=== PATIENT | female | born 1995 | race Caucasian/White ===

== ENCOUNTER 2022-10-16 13:05 | Outpatient (OUT) | payer OTHER, SELFPAY ==
--- NOTE | 2022-10-16 13:27 | US_ITS ---
[address] [address] Patient Name: BESSIE AN MRN: [id number] date: 1995 Sex: F Assigned Patient Location: US Current Patient Location: US Accession/Order Number: [id number] Exam Date: 10/16/2022 13:30 Report Date: 10/16/2022 15:57 At the request of: LIAT PRADO Procedure: US OB growth EXAMINATION: US OB growth HISTORY: Size inconsistent with dates COMPARISON: Ultrasound anatomy 07/24/2022 FINDINGS: Heart Rate: 141.1 bpm Number: 1.0 Position: BREECH Amniotic Fluid Volume: 15.5 cm Maximum Vertical Pocket: 5.3 cm Complete BIOMETRY: BPD: 7.6 cm cm; 30 weeks 4 days; <3% HC: 29.1 cmcm; 32 weeks 1 days; 6% AC: 27.3 cm cm; 31 weeks 3 days; 50% FL: 5.8 cm cm; 30 weeks 4 days; <3% EFW: 1701.0 grams; 7% FL/AC: 21.4 FL/BPD: 76.6 HC/AC: 1.1 GESTATIONAL AGE: Age by EDC: 32 weeks 5 days SETELA by EDC: 12/06/2022 Age by US: 31 weeks 1 day ESTELA by US: 12/17/2022 IMPRESSION: 1. Single live intrauterine with growth detailed above. 2. Estimated weight is at 7th percentile. BPD and FL are less than 3rd percentile. Electronically authenticated by: DUC BANGURA Date: 10/16/2022 15:57
== END 2022-10-16 13:06 ==
LOC: US 13:08
PROVIDERS: Visit Provider Obstetrics & Gynecology
DX: O26.843 Uterine size-date discrepancy, third trimester (principal); Z3A.32 32 weeks gestation of pregnancy
CPT/HCPCS: 76816

== ENCOUNTER 2022-11-09 20:06 | Outpatient (REF) | payer OTHER, SELFPAY | END 2022-11-09 20:07 | disposition home or self-care (01) | LOC: LAB 20:06 | PROVIDERS: Visit Provider Physician Assistant | DX: Z34.93 Encounter for supervision of normal pregnancy, unspecified, third trimester (principal) | CPT/HCPCS: 87081 ==

== ENCOUNTER 2022-11-27 17:27 | Observation (INO) | payer OTHER, SELFPAY ==
[2022-11-27 17:45] VITALS: BP 121/83; PULSE 94
[2022-11-27 17:46] VITALS: TEMP 36.4
[2022-11-27 18:46] LABS: Bilirubin Urine NEGATIVE (NEGATIVE); Blood Urine TRACE-I (NEGATIVE); Clarity Urine CLEAR (CLEAR); Color Urine LT. YELLOW (YELLOW); Glucose Urine UA NEGATIVE (NEGATIVE); Ketones Urine NEGATIVE (NEGATIVE); Leukocyte Esterase Urine LARGE (NEGATIVE); Nitrite Urine NEGATIVE (NEGATIVE); Protein Urine NEGATIVE (NEG/TRACE); Urobilinogen Urine 0.2 EU/dL (0.2-1.0)
[2022-11-27 18:47] LABS: Urine Microscopic Indicated YES
[2022-11-27 18:57] LABS: Bacteria Urine LARGE #/HPF (NONE SEEN); Cast Seen? NONE SEEN #/LPF (NONE SEEN); Crystals Seen? None Seen #/HPF (None Seen); Mucus Urine NONE SEEN (NONE SEEN); RBC Urine 0-2 #/HPF (0-2); Squamous Epithelial Cell Urine MANY #/LPF (NONE/RARE); Urine Culture Indicated YES
--- NOTE | 2022-11-27 19:30 | W.PC.ACHO ---
Registration Status: ADM LUCITA Primary Language: Preferred Language: Report given to Hank Alexandra RN. Care relinguished.
== END 2022-11-27 20:40 | disposition home or self-care (01) ==
PROVIDERS: Admitting Provider Obstetrics & Gynecology; Visit Provider Obstetrics & Gynecology
DX: O26.893 Other specified pregnancy related conditions, third trimester (principal); M54.50 Low back pain, unspecified; R10.30 Lower abdominal pain, unspecified; Z3A.38 38 weeks gestation of pregnancy
CPT/HCPCS: 59025; 81003; 81015; 87086; G0378; G0379

== ENCOUNTER 2022-12-01 21:55 | Inpatient (IN) | payer OTHER, SELFPAY ==
[2022-12-01 22:17] VITALS: BP 128/84; PULSE 86; RESP 16; TEMP 36.2
[2022-12-01 22:30] VITALS: TEMP 36.2
[2022-12-01] MEDS: 0.9 % SODIUM CHLORIDE 1,000 ML 125 ML IV (23:19)
[2022-12-01 23:20] LABS: Hematocrit 38.6 % (36.0-48.0); Hemoglobin 13.3 g/dL (12.0-16.0); Mean Corpuscular HGB Conc 34.5 g/dL (29.9-35.2); Mean Corpuscular Hemoglobin 28.4 pg (26.7-34.0); Mean Corpuscular Volume 82.3 fL (81.0-99.0); Mean Platelet Volume 11.9 fL (9.5-13.5); Platelet Count 242 10^3/uL (150-450); Red Blood Count 4.69 10^6/uL (4.20-5.40); Red Cell Distribution Width 13.2 % (11.0-15.0); White Blood Count 11.7 10^3/uL (4.0-11.0)
[2022-12-01 23:21] LABS: Amphetamine Screen Urine NEGATIVE (NEGATIVE); Barbiturates Screen Urine NEGATIVE (NEGATIVE); Benzodiazepines Screen Urine NEGATIVE (NEGATIVE); Buprenorphine Screen Urine NEGATIVE (NEGATIVE); Cannabinoid Screen Urine NEGATIVE (NEGATIVE); Cocaine Screen Urine NEGATIVE (NEGATIVE); Methadone Screen Urine NEGATIVE (NEGATIVE); Methamphetamines Screen Urine NEGATIVE (NEGATIVE); Opiate Screen Urine NEGATIVE (NEGATIVE); Oxycodone Screen Urine NEGATIVE (NEGATIVE); Phencyclidine Screen Urine NEGATIVE (NEGATIVE); Tricyclic Antidepressant Urine NEGATIVE (NEGATIVE)
[2022-12-02] VITALS (76 sets, daily range): BP systolic 76–158; BP diastolic 44–106; PULSE 50–99; RESP 14–22; TEMP 35.8–36.6; O2SAT 96–100
[2022-12-02] MEDS: OXYTOCIN 10 UNIT in 0.9 % SODIUM CHLORIDE 500 ML 6.012 UNIT IV (00:03)
[2022-12-02] MEDS: 0.9 % SODIUM CHLORIDE 1,000 ML 1000 ML IV ×2 (03:58→05:26)
[2022-12-02] MEDS: ROPIVACAINE HCL/PF 400 MG/200 ML PREMIX 10 MG EPIDURAL (04:18)
--- NOTE | 2022-12-02 07:24 | W.PC.ACHO ---
Registration Status: ADM IN Primary Language: Sri Lankan Preferred Language: Sri Lankan Report given to Janis PACHECO. Active Medications Generic Name Dose Route Start Last Admin Trade Name Freq PRN Reason Stop Dose Admin Carboprost Tromethamine 250 mcg 12/01/22 21:58 Carboprost Tromethamine 250 Mcg/Ml 1 Ml Vial IM Q15M PRN Bleeding Diphenhydramine HCl 25 mg 12/02/22 00:29 Diphenhydramine Hcl 50 Mg/Ml (1ml) Vial IV Q6H PRN Itching Ephedrine Sulfate 5 mg 12/02/22 00:29 Ephedrine Sulfate 50 Mg/Ml Vial IV Q5M PRN Blood Pressure - Low Fentanyl Citrate 100 mcg 12/02/22 03:00 Fentanyl Citrate/Pf 100 Mcg/2 Ml Vial EPIDURAL Q4H PRN Pain Sodium Chloride 1,000 mls @ 125 mls/hr 12/01/22 22:00 12/01/22 23:19 Sodium Chloride 0.9% 1,000 Ml IV 125 mls/hr .Q8H LIZBETH Administration Oxytocin 10 unit/ Sodium 501 mls @ 6.012 mls/hr 12/01/22 22:00 12/02/22 00:03 Chloride IV 2 milliunit/min Q24H LIZBETH 6.012 mls/hr Administration 2 MILLIUNIT/MIN Ropivacaine/Sodium Chloride 400 mg in 200 mls @ 6 mls/hr 12/02/22 03:00 12/02/22 04:18 Naropin 0.2% 400 Mg/200 Ml Bag EPIDURAL 10 mls/hr Q24H LIZBETH 10 mls/hr Administration Lidocaine 5 ml 12/01/22 21:58 Lidocaine Viscous 2% 15 Ml Topical Solution TOPICAL DIRECTED PRN Pain Lidocaine 1 ml 12/01/22 21:58 Lidocaine Hcl 1% 200 Mg/20 Ml Mdv INJ DIRECTED PRN Pain Methylergonovine Maleate 0.2 mg 12/01/22 21:58 Methylergonovine Maleate 0.2 Mg Tablet PO Q4H PRN Uterine Contractility/Contract Methylergonovine Maleate 0.2 mg 12/01/22 21:58 Methylergonovine Maleate 0.2 Mg/Ml Ampule IM ONCE PRN Uterine Contractility/Contract Misoprostol 600 mcg 12/01/22 21:58 Misoprostol 100 Mcg Tablet PO ONCE PRN Uterine Bleeding Misoprostol 800 mcg 12/01/22 21:58 Misoprostol 100 Mcg Tablet SL ONCE PRN Uterine Bleeding Misoprostol 1,000 mcg 12/01/22 21:58 Misoprostol 100 Mcg Tablet [place] ONCE PRN Uterine Bleeding Ondansetron HCl 4 mg 12/01/22 21:58 Ondansetron Pf 4 Mg/2 Ml Vial IV Q6H PRN Nausea And Vomiting Ondansetron HCl 4 mg 12/01/22 21:58 Ondansetron 4 Mg Rapdis Tablet SL Q6H PRN Nausea And Vomiting Oxytocin 10 unit 12/01/22 21:58 Oxytocin 100 Unit/10 Ml Vial IM ONCE PRN Uterine Bleeding Diet Category Date Time Status Regular Consistency Diet Diet 12/02/22 Breakfast Active IV Insertion/Site Date of IV Line Insertion [20g 12/01/22 right Hand] IV Insertion Time [20g right 23:10 Hand] Neurology Patient orientation (short person,place,time,situation list)
[2022-12-02] MEDS: 0.9 % SODIUM CHLORIDE 1,000 ML 125 ML IV (09:25)
[2022-12-02] MEDS: ONDANSETRON PF 4 MG/2 ML VIAL IV (10:39)
[2022-12-02] MEDS: CEFAZOLIN SODIUM/DEXTROSE,ISO 2 GM/50 ML PIGGYBACK IV ×2 (11:07→17:17)
--- NOTE | 2022-12-02 12:18 | PM.ONB ---
Brief Operative Note Date of procedure: 12/02/22 Pre-op diagnosis: iup at 39 2/7wks, nonreassuring heart tones Post-op diagnosis: same Procedure: NAME OF PROCEDURE: [ section ] PROCEDURE: Patient was taken back to the Operating Room where she was given a spinal anesthesia with Duramorph without difficulty. She was prepped and draped in the normal sterile fashion. A Pfannenstiel skin incision was then made 2 cm above the symphysis pubis and carried down to underlying rectus fascia using a Bovie. The fascia was incised in the midline and extended laterally using Wellington scissors. Two Vanessa clamps were placed on the superior aspect of the fascia and dissected off the underlying rectus muscles. The same was performed on the inferior aspect as well. The muscles were then in the midline. Peritoneum was identified and entered bluntly. The peritoneum was then extended superiorly and inferiorly with good visualization of the bladder. The bladder blade was inserted. A low transverse incision was made on the patient's uterus and extended laterally digitally. The infant was then delivered atraumatically after the bladder blade was removed in the cephalic position. The cord was clamped and cut. Cord blood was obtained. The infant was handed off to awaiting team. The patient's placenta was spontaneously delivered. The uterus was then exteriorized. The uterus was cleared of all clots and debris. The bladder blade was reinserted. The patient's uterine incision was closed using #0 Vicryl in a running lock fashion. Excellent hemostasis was assured. The uterus was then returned to the patient's abdomen. The patient's abdomen was copiously irrigated using warm saline. Peritoneal gutters were cleared of all clots and debris. Again excellent hemostasis was assured. The patient's peritoneum was closed using 3-0 Vicryl in a running fashion. The patient's fascia was closed using #0 Vicryl in a running fashion. The patient's skin was closed using 4-0 Vicryl subcuticularly. The patient tolerated the procedure well. Sponge, lap, and needle counts were correct x2. The patient was taken to the Recovery Room in stable condition. Anesthesia: spinal Surgeon: Isaias Gaines Photoengraving Machine Operator/Tender: BRITTANY BELTRÁN Estimated blood loss (mL): 700 Pathology: other (placenta) Condition: stable Disposition: PACU
--- NOTE | 2022-12-02 12:19 | PM.OBPRCCS ---
Procedure Pre-op/Post-op diagnoses: Pre-Op/Post-Op Diagnoses Operation Date: 12/02/22 11:30 <No data on this case meets the specified criteria> Procedure: Procedures Operation Date: 12/02/22 11:30 Actual Procedure Side Surgeon p Not Applicable Isaias Gaines DO Investment Manager: BRITTANY BELTRÁN Estimated blood loss (mL): 700 Disposition: PACU Anesthesia type: Epidural
[2022-12-02] MEDS: LACTATED RINGER'S SOLUTION 1,000 ML 50 ML IV (12:25)
--- NOTE | 2022-12-02 12:33 | PM.OBPN ---
OB - PN: Subj Subjective Narrative: front office assistant note: I first assisted Dr Gaines with emergent primary section. I first assisted as directed by physician. I independently closed the SQ layer with 3-0 vicryl and then independently closed the skin incision with 4-0 vicryl on a racquel needle hemostasis noted at completion. patient tolerated procedure well. Exam Constitutional Vital Signs, click to edit/add: Last Vital Signs Temp 97.8 F 12/02/22 12:25 Pulse 99 H 12/02/22 12:25 Resp 22 12/02/22 12:25 BP 93/56 L 12/02/22 12:25 Pulse Ox 100 12/02/22 12:25 O2 Del Method Nasal Cannula 12/02/22 12:25 O2 Flow Rate 2 12/02/22 12:25 Results Labs Labs: Short CBC 12/01/22 Range/Units 23:14 WBC 11.7 H (4.0-11.0) 10^3/uL Hgb 13.3 (12.0-16.0) g/dL Hct 38.6 (36.0-48.0) % Plt Count 242 (150-450) 10^3/uL OB - PN: A/P Time Spent with Patient Time: Total time spent is greater than 50% in coordination of care (as documented) at patient's floor/unit and/or counseling patient: Total time spent with greater than 50% in coordination of care (as documented) at patient's floor/unit and/or counseling patient: less than 15 minutes
--- NOTE | 2022-12-02 13:01 | PC.NURSE ---
ANESTHESIA AWARE OF PATIENTS LOW BLOOD PRESSURE. STATED IT WAS RUNNING SIMILAR IN OPERATING ROOM AND HE DID NOT TREAT IT (GIANNA HACKETT). ANESTHESIA FINE WITH BLOOD PRESSURE. NO ABNORMAL UTERINE BLEEDING NOTICED.
--- NOTE | 2022-12-02 13:07 | PC.NURSE ---
1139 cord segment sent to lab
[2022-12-02 14:15] LABS: Basophils Absolute Auto 0.1 10^3/uL (0.0-0.1); Basophils Percent Auto 0.3 % (0.2-2.0); Eosinophils Absolute Auto 0.1 10^3/uL (0.0-0.7); Eosinophils Percent Auto 0.3 % (0.9-7.0); Hematocrit 36.1 % (36.0-48.0); Immature Granulocytes Abs Auto 0.11 10^3/uL (0.00-0.03); Immature Granulocytes Pct Auto 0.6 % (0.0-0.5); Lymphocytes Absolute Auto 0.9 10^3/uL (1.2-3.8); Lymphocytes Percent Auto 5.3 % (20.5-60.0); Mean Corpuscular HGB Conc 33.2 g/dL (29.9-35.2); Mean Corpuscular Hemoglobin 28.2 pg (26.7-34.0); Mean Corpuscular Volume 84.7 fL (81.0-99.0); Mean Platelet Volume 11.8 fL (9.5-13.5); Monocytes Absolute Auto 0.8 10^3/uL (0.3-0.8); Monocytes Percent Auto 4.7 % (1.7-12.0); Neutrophils Absolute Auto 15.5 10^3/uL (1.4-6.5); Neutrophils Percent Auto 88.8 % (43.0-75.0); Platelet Count 209 10^3/uL (150-450); Red Blood Count 4.26 10^6/uL (4.20-5.40); Red Cell Distribution Width 13.3 % (11.0-15.0); White Blood Count 17.5 10^3/uL (4.0-11.0)
--- NOTE | 2022-12-02 15:10 | PC.NURSE ---
1505 meal ordered. abdominal pain 08/21. denies nausea. holds baby.
[2022-12-02] MEDS: KETOROLAC TROMETHAMINE 30 MG/ML VIAL IVP ×2 (15:13→23:02)
--- NOTE | 2022-12-02 15:34 | PC.NURSE ---
uterus firm at 3/u,entire abdomen appears to paplapte firm. rodrigues cont to drain clear yellow urine approx 100mls, . Pt denies pain. scant rubra noted on chux. Vs as charted. Lungs clear. HR slightly irregular.
--- NOTE | 2022-12-02 15:46 | PC.NURSE ---
uterus cont to be 3/u and firm. entire abdomen palpates firm. Pt denies pain. VS as charted. Banks draining clear yellow urine. no Rubra noted on chux. Pt appears slightly pale, reports feeling cold . To supine position warm blanket given. takes sips of water and apple juice tolerates well. 1330-Assessment remains the same as above . Uterus firm at 3/u, entire abdomen palaptes firm. Pt denies pain. BP decreased. IV fluid bolus initated at 999ml/hr. Scant rubra noted on chux. 1335-Dr. Gaines called. Notified of above. Orders received for STAT CBC. Pt informed of plan of care. 1350-lab in for lab draw 1400-Dr. Gaines arrives on unit. to pts room with this RN. Dr. Gaines manually expresses large uterine clot and approx 2 -3 small walnut size clots with moderate bleeding. Uterus then firms at u/e, abdomen soft. pericare performed and chux changed. awaiting CBC results. 1420-orders lunch. denies pain. U/E. abdomen soft. cont to wait CBC results 1440-remains semi fan's in bed. No s/s of distress noted. family remains at bedside. NO rubra noted on chux. VS as charted. Dressing c,d, i. Cont to await CBC results. 1510-Lab called reguarding CBC results. Obtained. hgb 12.0. Dr. Gaines notified of results. no new orders received. 1515-Plan of care reviewed with pt and family. Verbalizes understanding. Report to [place] PACHECO. care relinquished.
--- NOTE | 2022-12-02 17:59 | PC.NURSE ---
1715 offered to put baby skin to skin. mom declines. scd's intact. ate meal without c/o nausea.
--- NOTE | 2022-12-02 19:34 | W.PC.ACHO ---
Registration Status: ADM IN Primary Language: Congolese Preferred Language: Congolese Report received from Olivier Tariq RN [id number]. Active Medications Generic Name Dose Route Start Last Admin Trade Name Freq PRN Reason Stop Dose Admin Al Hydroxide/Mg Hydroxide 2,400 mg 12/02/22 12:14 Magnesium Hydroxide 2,400 Mg/10 Ml Oral.Susp PO Q6H PRN Dyspepsia Carboprost Tromethamine 250 mcg 12/01/22 21:58 Carboprost Tromethamine 250 Mcg/Ml 1 Ml Vial IM Q15M PRN Bleeding Diphenhydramine HCl 25 mg 12/02/22 12:14 Diphenhydramine Hcl 50 Mg/Ml (1ml) Vial IV 12/03/22 12:16 Q6H PRN Itching Docusate Sodium 100 mg 12/03/22 09:00 Docusate Sodium 100 Mg Capsule PO BID LIZBETH Enoxaparin Sodium 40 mg 12/02/22 23:00 Enoxaparin Sodium 40 Mg/0.4 Ml Syringe SUBQ Q24H LIZBETH Ephedrine Sulfate 5 mg 12/02/22 00:29 Ephedrine Sulfate 50 Mg/Ml Vial IV Q5M PRN Blood Pressure - Low Fentanyl Citrate 100 mcg 12/02/22 03:00 Fentanyl Citrate/Pf 100 Mcg/2 Ml Vial EPIDURAL Q4H PRN Pain Oxytocin 10 unit/ Sodium 501 mls @ 6.012 mls/hr 12/01/22 22:00 12/02/22 07:30 Chloride IV 18 milliunit/min Q24H LIZBETH 54.108 mls/hr Infusion 2 MILLIUNIT/MIN Ropivacaine/Sodium Chloride 400 mg in 200 mls @ 6 mls/hr 12/02/22 03:00 12/02/22 04:18 Naropin 0.2% 400 Mg/200 Ml Bag EPIDURAL 10 mls/hr Q24H LIZBETH 10 mls/hr Administration Sodium Chloride 1,000 mls @ 125 mls/hr 12/02/22 11:15 Sodium Chloride 0.9% 1,000 Ml IV .Q8H LIZBETH Lactated Ringer's 1,000 mls @ 125 mls/hr 12/02/22 12:15 Lactated Ringers IV .Q8H LIZBETH Oxytocin 20 unit/ Sodium 1,002 mls @ 125 mls/hr 12/02/22 12:15 Chloride IV 12/02/22 20:14 Q8H LIZBETH Lactated Ringer's 1,000 mls @ 50 mls/hr 12/02/22 13:00 12/02/22 12:25 Lactated Ringers IV 50 mls/hr .Q20H LIZBETH Administration Ibuprofen 800 mg 12/02/22 12:14 Ibuprofen 400 Mg Tablet PO Q8H PRN Pain Ketorolac Tromethamine 30 mg 12/02/22 12:14 12/02/22 15:13 Ketorolac Tromethamine 30 Mg/Ml Vial IVP 12/04/22 12:15 30 mg Q6H PRN Administration Pain Lidocaine 5 ml 12/01/22 21:58 Lidocaine Viscous 2% 15 Ml Topical Solution TOPICAL DIRECTED PRN Pain Lidocaine 1 ml 12/01/22 21:58 Lidocaine Hcl 1% 200 Mg/20 Ml Mdv INJ DIRECTED PRN Pain Methylergonovine Maleate 0.2 mg 12/01/22 21:58 Methylergonovine Maleate 0.2 Mg Tablet PO Q4H PRN Uterine Contractility/Contract Methylergonovine Maleate 0.2 mg 12/01/22 21:58 Methylergonovine Maleate 0.2 Mg/Ml Ampule IM ONCE PRN Uterine Contractility/Contract Misoprostol 600 mcg 12/01/22 21:58 Misoprostol 100 Mcg Tablet PO ONCE PRN Uterine Bleeding Misoprostol 800 mcg 12/01/22 21:58 Misoprostol 100 Mcg Tablet SL ONCE PRN Uterine Bleeding Misoprostol 1,000 mcg 12/01/22 21:58 Misoprostol 100 Mcg Tablet [place] ONCE PRN Uterine Bleeding Nalbuphine HCl 10 mg 12/02/22 12:14 Nalbuphine Hcl 10 Mg/Ml Ampule IV 12/03/22 12:16 Q3H PRN Itching Ondansetron HCl 4 mg 12/01/22 21:58 Ondansetron 4 Mg Rapdis Tablet SL Q6H PRN Nausea And Vomiting Ondansetron HCl 4 mg 12/02/22 12:14 Ondansetron Pf 4 Mg/2 Ml Vial IV Q6H PRN Nausea And Vomiting Oxycodone/Acetaminophen 1 each 12/02/22 12:14 Oxycodone Hcl/Acetaminophen 5-325 Mg Tablet PO Q4H PRN Pain Oxycodone/Acetaminophen 2 each 12/02/22 12:14 Oxycodone Hcl/Acetaminophen 5-325 Mg Tablet PO Q4H PRN Pain Oxytocin 10 unit 12/01/22 21:58 Oxytocin 100 Unit/10 Ml Vial IM ONCE PRN Uterine Bleeding Senna 17.2 mg 12/02/22 20:00 Sennosides 8.6 Mg Tablet PO QHS PRN Constipation Simethicone 80 mg 12/02/22 12:14 Simethicone 80 Mg Tab.Chew PO QID PRN Abdominal Distention Diet Category Date Time Status Regular Consistency Diet Diet 12/02/22 Dinner Active IV Insertion/Site Date of IV Line Insertion [20g 12/01/22 right Hand] IV Insertion Time [20g right 23:10 Hand] Neurology Patient orientation (short person,place,time,situation list) Respiratory Lung sounds [Throughout] clear Pulse Oximetry 96 Pulse Oximetry 98 Pulse Oximetry 98 Pulse Oximetry 97 Pulse Oximetry 97 Pulse Oximetry 98 Pulse Oximetry 98 Pulse Oximetry 100 Pulse Oximetry 100 Pulse Oximetry 100 Pulse Oximetry 100 Oxygen Delivery Method Room Air Oxygen Delivery Method Nasal Cannula Oxygen Delivery Method Nasal Cannula Oxygen Delivery Method Nasal Cannula Oxygen Delivery Flow Rate 2 Oxygen Delivery Flow Rate 2 Oxygen Delivery Flow Rate 2 Oxygen Delivery Flow Rate 2 Oxygen Delivery Flow Rate 2 Oxygen Delivery Flow Rate 2 Oxygen Delivery Flow Rate 2 Oxygen Delivery Flow Rate 2 Oxygen Delivery Flow Rate 2 Cardiology Heart Sounds Regular
[2022-12-02] MEDS: ENOXAPARIN SODIUM 40 MG/0.4 ML SYRINGE SUBQ (23:03)
[2022-12-03] VITALS (8 sets, daily range): BP systolic 115–124; BP diastolic 66–74; PULSE 62–81; RESP 14–16; TEMP 36–36.7
[2022-12-03] MEDS: KETOROLAC TROMETHAMINE 30 MG/ML VIAL IVP ×4 (06:24→23:25)
[2022-12-03 06:36] LABS: Basophils Absolute Auto 0.1 10^3/uL (0.0-0.1); Basophils Percent Auto 0.5 % (0.2-2.0); Eosinophils Absolute Auto 0.2 10^3/uL (0.0-0.7); Eosinophils Percent Auto 1.5 % (0.9-7.0); Hematocrit 32.7 % (36.0-48.0); Immature Granulocytes Abs Auto 0.05 10^3/uL (0.00-0.03); Immature Granulocytes Pct Auto 0.5 % (0.0-0.5); Lymphocytes Absolute Auto 2.6 10^3/uL (1.2-3.8); Lymphocytes Percent Auto 23.2 % (20.5-60.0); Mean Corpuscular HGB Conc 33.6 g/dL (29.9-35.2); Mean Corpuscular Hemoglobin 28.4 pg (26.7-34.0); Mean Corpuscular Volume 84.3 fL (81.0-99.0); Mean Platelet Volume 11.8 fL (9.5-13.5); Monocytes Absolute Auto 0.6 10^3/uL (0.3-0.8); Neutrophils Absolute Auto 7.7 10^3/uL (1.4-6.5); Neutrophils Percent Auto 69.3 % (43.0-75.0); Platelet Count 185 10^3/uL (150-450); Red Blood Count 3.88 10^6/uL (4.20-5.40); Red Cell Distribution Width 13.7 % (11.0-15.0); White Blood Count 11.1 10^3/uL (4.0-11.0)
--- NOTE | 2022-12-03 06:42 | PC.NURSE ---
RN assess pt at this time. Top of pt's abdomen palpates firm just under diaphragm. Pt fundus checked. Fundus palpates firm 1 above umbilicus. With fundal check, RN hears audible gurgling sound when assessing fundus. Pt scant bleeding and no bleeding noted with fundal check.
--- NOTE | 2022-12-03 07:15 | W.PC.ACHO ---
Registration Status: ADM IN Primary Language: Mauritanian Preferred Language: Mauritanian report given 0700. Active Medications Generic Name Dose Route Start Last Admin Trade Name Freq PRN Reason Stop Dose Admin Al Hydroxide/Mg Hydroxide 2,400 mg 12/02/22 12:14 Magnesium Hydroxide 2,400 Mg/10 Ml Oral.Susp PO Q6H PRN Dyspepsia Carboprost Tromethamine 250 mcg 12/01/22 21:58 Carboprost Tromethamine 250 Mcg/Ml 1 Ml Vial IM Q15M PRN Bleeding Diphenhydramine HCl 25 mg 12/02/22 12:14 Diphenhydramine Hcl 50 Mg/Ml (1ml) Vial IV 12/03/22 12:16 Q6H PRN Itching Docusate Sodium 100 mg 12/03/22 09:00 Docusate Sodium 100 Mg Capsule PO BID LIZBETH Enoxaparin Sodium 40 mg 12/02/22 23:00 12/02/22 23:03 Enoxaparin Sodium 40 Mg/0.4 Ml Syringe SUBQ 40 mg Q24H LIZBETH Administration Ephedrine Sulfate 5 mg 12/02/22 00:29 Ephedrine Sulfate 50 Mg/Ml Vial IV Q5M PRN Blood Pressure - Low Fentanyl Citrate 100 mcg 12/02/22 03:00 Fentanyl Citrate/Pf 100 Mcg/2 Ml Vial EPIDURAL Q4H PRN Pain Oxytocin 10 unit/ Sodium 501 mls @ 6.012 mls/hr 12/01/22 22:00 12/02/22 07:30 Chloride IV 18 milliunit/min Q24H LIZBETH 54.108 mls/hr Infusion 2 MILLIUNIT/MIN Ropivacaine/Sodium Chloride 400 mg in 200 mls @ 6 mls/hr 12/02/22 03:00 12/02/22 04:18 Naropin 0.2% 400 Mg/200 Ml Bag EPIDURAL 10 mls/hr Q24H LIZBETH 10 mls/hr Administration Sodium Chloride 1,000 mls @ 125 mls/hr 12/02/22 11:15 Sodium Chloride 0.9% 1,000 Ml IV .Q8H LIZBETH Lactated Ringer's 1,000 mls @ 125 mls/hr 12/02/22 12:15 Lactated Ringers IV .Q8H LIZBETH Lactated Ringer's 1,000 mls @ 50 mls/hr 12/02/22 13:00 12/02/22 12:25 Lactated Ringers IV 50 mls/hr .Q20H LIZBETH Administration Ibuprofen 800 mg 12/02/22 12:14 Ibuprofen 400 Mg Tablet PO Q8H PRN Pain Ketorolac Tromethamine 30 mg 12/02/22 12:14 12/03/22 06:24 Ketorolac Tromethamine 30 Mg/Ml Vial IVP 12/04/22 12:15 30 mg Q6H PRN Administration Pain Lidocaine 5 ml 12/01/22 21:58 Lidocaine Viscous 2% 15 Ml Topical Solution TOPICAL DIRECTED PRN Pain Lidocaine 1 ml 12/01/22 21:58 Lidocaine Hcl 1% 200 Mg/20 Ml Mdv INJ DIRECTED PRN Pain Methylergonovine Maleate 0.2 mg 12/01/22 21:58 Methylergonovine Maleate 0.2 Mg Tablet PO Q4H PRN Uterine Contractility/Contract Methylergonovine Maleate 0.2 mg 12/01/22 21:58 Methylergonovine Maleate 0.2 Mg/Ml Ampule IM ONCE PRN Uterine Contractility/Contract Misoprostol 600 mcg 12/01/22 21:58 Misoprostol 100 Mcg Tablet PO ONCE PRN Uterine Bleeding Misoprostol 800 mcg 12/01/22 21:58 Misoprostol 100 Mcg Tablet SL ONCE PRN Uterine Bleeding Misoprostol 1,000 mcg 12/01/22 21:58 Misoprostol 100 Mcg Tablet [place] ONCE PRN Uterine Bleeding Nalbuphine HCl 10 mg 12/02/22 12:14 Nalbuphine Hcl 10 Mg/Ml Ampule IV 12/03/22 12:16 Q3H PRN Itching Ondansetron HCl 4 mg 12/01/22 21:58 Ondansetron 4 Mg Rapdis Tablet SL Q6H PRN Nausea And Vomiting Ondansetron HCl 4 mg 12/02/22 12:14 Ondansetron Pf 4 Mg/2 Ml Vial IV Q6H PRN Nausea And Vomiting Oxycodone/Acetaminophen 1 each 12/02/22 12:14 12/02/22 20:01 Oxycodone Hcl/Acetaminophen 5-325 Mg Tablet PO 1 each Q4H PRN Administration Pain Oxycodone/Acetaminophen 2 each 12/02/22 12:14 12/03/22 00:48 Oxycodone Hcl/Acetaminophen 5-325 Mg Tablet PO 2 each Q4H PRN Administration Pain Oxytocin 10 unit 12/01/22 21:58 Oxytocin 100 Unit/10 Ml Vial IM ONCE PRN Uterine Bleeding Senna 17.2 mg 12/02/22 20:00 Sennosides 8.6 Mg Tablet PO QHS PRN Constipation Simethicone 80 mg 12/02/22 12:14 Simethicone 80 Mg Tab.Chew PO QID PRN Abdominal Distention Diet Category Date Time Status Regular Consistency Diet Diet 12/02/22 Dinner Active Respiratory Lung sounds [Throughout] clear Lung sounds [Throughout] clear Lung sounds [Throughout] clear Lung sounds [Throughout] clear Pulse Oximetry 96 Pulse Oximetry 98 Pulse Oximetry 98 Pulse Oximetry 97 Pulse Oximetry 97 Pulse Oximetry 98 Pulse Oximetry 98 Pulse Oximetry 100 Pulse Oximetry 100 Pulse Oximetry 100 Pulse Oximetry 100 Oxygen Delivery Method Room Air Oxygen Delivery Method Room Air Oxygen Delivery Method Nasal Cannula Oxygen Delivery Method Nasal Cannula Oxygen Delivery Method Nasal Cannula Oxygen Delivery Flow Rate 2 Oxygen Delivery Flow Rate 2 Oxygen Delivery Flow Rate 2 Oxygen Delivery Flow Rate 2 Oxygen Delivery Flow Rate 2 Oxygen Delivery Flow Rate 2 Oxygen Delivery Flow Rate 2 Oxygen Delivery Flow Rate 2 Oxygen Delivery Flow Rate 2 Cardiology Heart Sounds Regular
[2022-12-03] MEDS: DOCUSATE SODIUM 100 MG CAPSULE PO ×2 (08:40→21:36)
--- NOTE | 2022-12-03 09:27 | P.OBPN_ITS ---
OB - PN: Subj Subjective Patient comments: no complaints [place] status: doing well Exam Constitutional Vital Signs, click to edit/add: Last Vital Signs Temp 98.0 F 12/03/22 07:29 Pulse 62 12/03/22 07:28 Resp 16 12/03/22 07:29 BP 115/67 12/03/22 07:28 Pulse Ox 96 12/02/22 17:25 O2 Del Method Room Air 12/03/22 06:15 O2 Flow Rate 2 12/02/22 13:00 Documenting provider has reviewed patient's vital signs: yes Common normals: no apparent distress Respiratory Common normals: normal respiratory effort and clear to auscultation bilaterally Cardio Common normals: regular rate and regular rhythm GI Common normals: Normal to inspection, nondistended, normoactive bowel sounds present Extremity Common normals: no clubbing, cyanosis or edema and no calf tenderness Results Labs Labs: Short CBC 12/02/22 12/03/22 Range/Units 14:03 06:28 WBC 17.5 H 11.1 H (4.0-11.0) 10^3/uL Hgb 12.0 11.0 L (12.0-16.0) g/dL Hct 36.1 32.7 L (36.0-48.0) % Plt Count 209 185 (150-450) 10^3/uL OB - PN: A/P Plan - day: 1 Plan: routine postop care, discharge home and follow up 6 weeks Time Spent with Patient Time: Total time spent is greater than 50% in coordination of care (as documented) at patient's floor/unit and/or counseling patient: Total time spent with greater than 50% in coordination of care (as documented) at patient's floor/unit and/or counseling patient: less than 15 minutes
--- NOTE | 2022-12-03 09:55 | PC.NURSE ---
At 0940 director underwriter sales entered room. Pt up eating breakfast at this time. Baby in the crib. Multimedia Editor gave medication administration and medication education to the patient. Pt denies any further needs at this time.
--- NOTE | 2022-12-03 16:36 | PC.NURSE ---
instructed on showering and removing dressing.
--- NOTE | 2022-12-03 20:01 | W.PC.ACHO ---
Registration Status: ADM IN Primary Language: [place]araguan Preferred Language: Nicaraguan Report received from Janis PACHECO. Active Medications Generic Name Dose Route Start Last Admin Trade Name Freq PRN Reason Stop Dose Admin Al Hydroxide/Mg Hydroxide 2,400 mg 12/02/22 12:14 Magnesium Hydroxide 2,400 Mg/10 Ml Oral.Susp PO Q6H PRN Dyspepsia Carboprost Tromethamine 250 mcg 12/01/22 21:58 Carboprost Tromethamine 250 Mcg/Ml 1 Ml Vial IM Q15M PRN Bleeding Docusate Sodium 100 mg 12/03/22 09:00 12/03/22 08:40 Docusate Sodium 100 Mg Capsule PO 100 mg BID LIZBETH Administration Enoxaparin Sodium 40 mg 12/02/22 23:00 12/02/22 23:03 Enoxaparin Sodium 40 Mg/0.4 Ml Syringe SUBQ 40 mg Q24H LIZBETH Administration Ephedrine Sulfate 5 mg 12/02/22 00:29 Ephedrine Sulfate 50 Mg/Ml Vial IV Q5M PRN Blood Pressure - Low Fentanyl Citrate 100 mcg 12/02/22 03:00 Fentanyl Citrate/Pf 100 Mcg/2 Ml Vial EPIDURAL Q4H PRN Pain Oxytocin 10 unit/ Sodium 501 mls @ 6.012 mls/hr 12/01/22 22:00 12/02/22 07:30 Chloride IV 18 milliunit/min Q24H LIZBETH 54.108 mls/hr Infusion 2 MILLIUNIT/MIN Ropivacaine/Sodium Chloride 400 mg in 200 mls @ 6 mls/hr 12/02/22 03:00 12/02/22 04:18 Naropin 0.2% 400 Mg/200 Ml Bag EPIDURAL 10 mls/hr Q24H LIZBETH 10 mls/hr Administration Sodium Chloride 1,000 mls @ 125 mls/hr 12/02/22 11:15 Sodium Chloride 0.9% 1,000 Ml IV .Q8H LIZBETH Lactated Ringer's 1,000 mls @ 125 mls/hr 12/02/22 12:15 Lactated Ringers IV .Q8H LIZBETH Lactated Ringer's 1,000 mls @ 50 mls/hr 12/02/22 13:00 12/02/22 12:25 Lactated Ringers IV 50 mls/hr .Q20H LIZBETH Administration Ibuprofen 800 mg 12/02/22 12:14 Ibuprofen 400 Mg Tablet PO Q8H PRN Pain Ketorolac Tromethamine 30 mg 12/02/22 12:14 12/03/22 16:27 Ketorolac Tromethamine 30 Mg/Ml Vial IVP 12/04/22 12:15 30 mg Q6H PRN Administration Pain Lidocaine 5 ml 12/01/22 21:58 Lidocaine Viscous 2% 15 Ml Topical Solution TOPICAL DIRECTED PRN Pain Lidocaine 1 ml 12/01/22 21:58 Lidocaine Hcl 1% 200 Mg/20 Ml Mdv INJ DIRECTED PRN Pain Methylergonovine Maleate 0.2 mg 12/01/22 21:58 Methylergonovine Maleate 0.2 Mg Tablet PO Q4H PRN Uterine Contractility/Contract Methylergonovine Maleate 0.2 mg 12/01/22 21:58 Methylergonovine Maleate 0.2 Mg/Ml Ampule IM ONCE PRN Uterine Contractility/Contract Misoprostol 600 mcg 12/01/22 21:58 Misoprostol 100 Mcg Tablet PO ONCE PRN Uterine Bleeding Misoprostol 800 mcg 12/01/22 21:58 Misoprostol 100 Mcg Tablet SL ONCE PRN Uterine Bleeding Misoprostol 1,000 mcg 12/01/22 21:58 Misoprostol 100 Mcg Tablet [place] ONCE PRN Uterine Bleeding Ondansetron HCl 4 mg 12/01/22 21:58 Ondansetron 4 Mg Rapdis Tablet SL Q6H PRN Nausea And Vomiting Ondansetron HCl 4 mg 12/02/22 12:14 Ondansetron Pf 4 Mg/2 Ml Vial IV Q6H PRN Nausea And Vomiting Oxycodone/Acetaminophen 1 each 12/02/22 12:14 12/02/22 20:01 Oxycodone Hcl/Acetaminophen 5-325 Mg Tablet PO 1 each Q4H PRN Administration Pain Oxycodone/Acetaminophen 2 each 12/02/22 12:14 12/03/22 12:59 Oxycodone Hcl/Acetaminophen 5-325 Mg Tablet PO 2 each Q4H PRN Administration Pain Oxytocin 10 unit 12/01/22 21:58 Oxytocin 100 Unit/10 Ml Vial IM ONCE PRN Uterine Bleeding Senna 17.2 mg 12/02/22 20:00 Sennosides 8.6 Mg Tablet PO QHS PRN Constipation Simethicone 80 mg 12/02/22 12:14 Simethicone 80 Mg Tab.Chew PO QID PRN Abdominal Distention Respiratory Lung sounds [Throughout] clear Lung sounds [Throughout] clear Lung sounds [Throughout] clear Lung sounds [Throughout] clear Lung sounds [Throughout] clear Oxygen Delivery Method Room Air Cardiology Heart Sounds Strong,Regular Heart Sounds Regular Renal Bladder Pattern Continent
[2022-12-03] MEDS: ENOXAPARIN SODIUM 40 MG/0.4 ML SYRINGE SUBQ (23:25)
[2022-12-04] MEDS: KETOROLAC TROMETHAMINE 30 MG/ML VIAL IVP (06:25)
--- NOTE | 2022-12-04 07:55 | P.OBPN_ITS ---
OB - PN: Subj Subjective Patient comments: no complaints [place] status: doing well Exam Constitutional Vital Signs, click to edit/add: Last Vital Signs Temp 97.6 F 12/03/22 23:15 Pulse 81 12/03/22 23:24 Resp 14 12/03/22 23:15 BP 116/70 12/03/22 23:24 Pulse Ox 96 12/02/22 17:25 O2 Del Method Room Air 12/03/22 23:15 O2 Flow Rate 2 12/02/22 13:00 Common normals: no apparent distress Respiratory Common normals: normal respiratory effort and clear to auscultation bilaterally Cardio Common normals: regular rate and regular rhythm GI Common normals: Normal to inspection, nondistended, normoactive bowel sounds present Extremity Common normals: no clubbing, cyanosis or edema and no calf tenderness OB - PN: A/P Plan - day: 2 Plan: routine postop care, discharge home and follow up 6 weeks Time Spent with Patient Time: Total time spent is greater than 50% in coordination of care (as documented) at patient's floor/unit and/or counseling patient: Total time spent with greater than 50% in coordination of care (as documented) at patient's floor/unit and/or counseling patient: less than 15 minutes
--- NOTE | 2022-12-04 08:01 | W.PC.ACHO ---
Registration Status: ADM IN Primary Language: [place] Preferred Language: [place] Report given 0745. Active Medications Generic Name Dose Route Start Last Admin Trade Name Freq PRN Reason Stop Dose Admin Al Hydroxide/Mg Hydroxide 2,400 mg 12/02/22 12:14 Magnesium Hydroxide 2,400 Mg/10 Ml Oral.Susp PO Q6H PRN Dyspepsia Carboprost Tromethamine 250 mcg 12/01/22 21:58 Carboprost Tromethamine 250 Mcg/Ml 1 Ml Vial IM Q15M PRN Bleeding Docusate Sodium 100 mg 12/03/22 09:00 12/03/22 21:36 Docusate Sodium 100 Mg Capsule PO 100 mg BID LIZBETH Administration Enoxaparin Sodium 40 mg 12/02/22 23:00 12/03/22 23:25 Enoxaparin Sodium 40 Mg/0.4 Ml Syringe SUBQ 40 mg Q24H LIZBETH Administration Ephedrine Sulfate 5 mg 12/02/22 00:29 Ephedrine Sulfate 50 Mg/Ml Vial IV Q5M PRN Blood Pressure - Low Fentanyl Citrate 100 mcg 12/02/22 03:00 Fentanyl Citrate/Pf 100 Mcg/2 Ml Vial EPIDURAL Q4H PRN Pain Oxytocin 10 unit/ Sodium 501 mls @ 6.012 mls/hr 12/01/22 22:00 12/02/22 07:30 Chloride IV 18 milliunit/min Q24H LIZBETH 54.108 mls/hr Infusion 2 MILLIUNIT/MIN Ropivacaine/Sodium Chloride 400 mg in 200 mls @ 6 mls/hr 12/02/22 03:00 12/02/22 04:18 Naropin 0.2% 400 Mg/200 Ml Bag EPIDURAL 10 mls/hr Q24H LIZBETH 10 mls/hr Administration Sodium Chloride 1,000 mls @ 125 mls/hr 12/02/22 11:15 Sodium Chloride 0.9% 1,000 Ml IV .Q8H LIZBETH Lactated Ringer's 1,000 mls @ 125 mls/hr 12/02/22 12:15 Lactated Ringers IV .Q8H LIZBETH Lactated Ringer's 1,000 mls @ 50 mls/hr 12/02/22 13:00 12/02/22 12:25 Lactated Ringers IV 50 mls/hr .Q20H LIZBETH Administration Ibuprofen 800 mg 12/02/22 12:14 Ibuprofen 400 Mg Tablet PO Q8H PRN Pain Ketorolac Tromethamine 30 mg 12/02/22 12:14 12/04/22 06:25 Ketorolac Tromethamine 30 Mg/Ml Vial IVP 12/04/22 12:15 30 mg Q6H PRN Administration Pain Lidocaine 5 ml 12/01/22 21:58 Lidocaine Viscous 2% 15 Ml Topical Solution TOPICAL DIRECTED PRN Pain Lidocaine 1 ml 12/01/22 21:58 Lidocaine Hcl 1% 200 Mg/20 Ml Mdv INJ DIRECTED PRN Pain Methylergonovine Maleate 0.2 mg 12/01/22 21:58 Methylergonovine Maleate 0.2 Mg Tablet PO Q4H PRN Uterine Contractility/Contract Methylergonovine Maleate 0.2 mg 12/01/22 21:58 Methylergonovine Maleate 0.2 Mg/Ml Ampule IM ONCE PRN Uterine Contractility/Contract Misoprostol 600 mcg 12/01/22 21:58 Misoprostol 100 Mcg Tablet PO ONCE PRN Uterine Bleeding Misoprostol 800 mcg 12/01/22 21:58 Misoprostol 100 Mcg Tablet SL ONCE PRN Uterine Bleeding Misoprostol 1,000 mcg 12/01/22 21:58 Misoprostol 100 Mcg Tablet ME ONCE PRN Uterine Bleeding Ondansetron HCl 4 mg 12/01/22 21:58 Ondansetron 4 Mg Rapdis Tablet SL Q6H PRN Nausea And Vomiting Ondansetron HCl 4 mg 12/02/22 12:14 Ondansetron Pf 4 Mg/2 Ml Vial IV Q6H PRN Nausea And Vomiting Oxycodone/Acetaminophen 1 each 12/02/22 12:14 12/03/22 21:36 Oxycodone Hcl/Acetaminophen 5-325 Mg Tablet PO 1 each Q4H PRN Administration Pain Oxycodone/Acetaminophen 2 each 12/02/22 12:14 12/03/22 12:59 Oxycodone Hcl/Acetaminophen 5-325 Mg Tablet PO 2 each Q4H PRN Administration Pain Oxytocin 10 unit 12/01/22 21:58 Oxytocin 100 Unit/10 Ml Vial IM ONCE PRN Uterine Bleeding Senna 17.2 mg 12/02/22 20:00 Sennosides 8.6 Mg Tablet PO QHS PRN Constipation Simethicone 80 mg 07/22/23 12:14 Simethicone 80 Mg Tab.Chew PO QID PRN Abdominal Distention Respiratory Lung sounds [Throughout] clear Lung sounds [Throughout] clear Oxygen Delivery Method Room Air Cardiology Heart Sounds Strong,Regular Renal Bladder Pattern Continent
[2022-12-04 08:32] VITALS: BP 120/83; PULSE 71
[2022-12-04 08:50] VITALS: BP 120/83; PULSE 71; RESP 16; TEMP 36.4
[2022-12-04] MEDS: DOCUSATE SODIUM 100 MG CAPSULE PO (09:21)
--- NOTE | 2022-12-08 | DS_ITS ---
DISCHARGE DATE: ??12/08/2022 PRIMARY DIAGNOSES: 1.? Intrauterine at 39 2/7 weeks. 2.? Non-reassuring heart tones. PROCEDURE:? section. HOSPITAL COURSE:? As expected.? Please see chart for full details.? LABORATORY DATA:? Please see chart. COMPLICATIONS:? None. DISCHARGE CONDITION:? Stable. CONSULTATION:? Anesthesia. DISCHARGE INSTRUCTIONS: 1.? Diet:? Regular. 2.? Medications: a.? Percocet 5/325 one to two p.o. every 4-6 hours p.r.n. pain. b.? Motrin 800 one p.o. every 8 hours p.r.n. pain. 3.? Followup in one week. Restrictions:? Pelvic rest for 6 weeks.? No heavy lifting.? May drive when pain free and no longer on narcotics. DOMINGUEZD
== END 2022-12-04 15:20 | disposition home or self-care (01) | DRG 787 ==
PROVIDERS: Admitting Provider Obstetrics & Gynecology; Visit Provider Obstetrics & Gynecology
PROC: 10D00Z1 Extraction of Products of Conception, Low, Open Approach (ICD-10-PCS; CPT 59514; principal; 2022-12-02 11:30)
DX: O99.344 Other mental disorders complicating childbirth (principal); O99.354 Diseases of the nervous system complicating childbirth; O76 Abnormality in fetal heart rate and rhythm complicating labor and delivery; Z3A.39 39 weeks gestation of pregnancy; Z37.0 Single live birth; G43.109 Migraine with aura, not intractable, without status migrainosus; F41.9 Anxiety disorder, unspecified; F32.A Depression, unspecified; Z79.899 Other long term (current) drug therapy; Z81.8 Family history of other mental and behavioral disorders
CPT/HCPCS: 36415; 80307; 85025; 85027; 86850; 86900; 86901; 88307; 94667; 96365; 96366; 96372; 96375; 96376

== ENCOUNTER 2023-12-11 05:15 | Emergency (ER) | payer OTHER, SELFPAY ==
[2023-12-11 05:20] VITALS: BP 118/79; PULSE 135; TEMP 38.2; O2SAT 95; BMI 40.2
--- NOTE | 2023-12-11 05:43 | ED.GENADUL1 ---
HPI HPI - General Adult General Chief complaint: Headache Stated complaint: HEADACHE Time Seen by Provider: 12/11/23 05:38 Source: patient Mode of arrival: walk-in Limitations: no limitations History of Present Illness HPI narrative: Old female presents to the emergency department for headache. Its on the forehead and there is been no trauma. She did not realize she had a fever. No cough. She had some vomiting yesterday but none now. No known ill contacts and she is not short of breath. Related Data Home Medications ?Medication ?Instructions ?Recorded ?Confirmed vit no.95-ferrous 1 tab PO DAILY 11/27/22 12/01/22 fumarate 28 mg-folic acid 800 mcg tablet () sertraline 50 mg tablet 50 mg PO Q24H 12/11/23 12/11/23 Previous Rx's ?Medication ?Instructions ?Recorded ibuprofen 800 mg tablet 800 mg PO Q8H PRN pain 14 days #40 12/04/22 tabs oxycodone-acetaminophen 5 mg-325 1 tab PO Q6H PRN pain 7 days #28 12/04/22 mg tablet (Percocet) tabs Allergies Allergy/AdvReac Type Severity Reaction Status Date / Time No Known Drug Allergies Allergy Verified 12/11/23 05:26 Opioid HPI Opioid Management Most Recent Opioid Data: Last Pain Scale 9 12/11/23 06:38 Last ED Pain Assessment 12/11/23 05:46 Last MAR Pain Assessment 12/11/23 06:38 Ur Phencyclidine Scrn Negative (NEGATIVE) 12/01/22 22:20 Review of Systems ROS Narrative A ten point review of systems is negative except as noted above. PFSH PFSH Medical History (Updated 12/11/23 @ 06:43 by Reza Morales MD) Depression ?F32.A - Depression, unspecified (ICD-10) Anxiety ?F41.9 - Anxiety disorder, unspecified (ICD-10) Social History (Updated 11/27/22 @ 17:47 by Patricia Rivera RN) Within the past year, how often did you have a drink containing alcohol: never Score interpretation: A score less than 3 is consistent with normal alcohol consumption. Smoking status: Never smoker Non-prescribed substance use: denies use Exam Narrative Exam Narrative: Nurses note and vital signs reviewed and patient is not hypoxic. General: The patient appears well and in no apparent distress. Patient is resting comfortably on cart. Skin: Warm, dry, no pallor noted. There is no rash noted. Head: Normocephalic, atraumatic, neck supple, no nuchal rigidity Eye: Normal conjunctiva, no drainage Ears, Nose, Mouth, and Throat: oral mucosa is moist. Nares patent. Cardiovascular: Regular Rate and Rhythm, tachycardic Respiratory: Patient is in no distress, no accessory muscle use, lungs are clear to auscultation, no wheezing, rales or rhonchi Back: non-tender GI: Soft and nontender Musculoskeletal: The patient has no evidence of calf tenderness, no pitting edema, symmetrical pulses noted bilaterally Neurological: A&O, normal speech Psychiatric: Cooperative Constitutional Vital Signs, click to edit/add: Last Vital Signs Temp 100.7 F H 12/11/23 05:20 Pulse 135 H 12/11/23 05:20 Resp 20 12/11/23 05:20 BP 118/79 12/11/23 05:20 Pulse Ox 95 12/11/23 05:20 O2 Del Method Room Air 12/11/23 05:20 Course Vital Signs Vital signs: Vital Signs Temperature 100.7 F H 12/11/23 05:20 Pulse Rate 135 H 12/11/23 05:20 Respiratory Rate 20 12/11/23 05:20 Blood Pressure 118/79 12/11/23 05:20 Pulse Oximetry 95 12/11/23 05:20 Oxygen Delivery Method Room Air 12/11/23 05:20 Temperature 100.7 F H 12/11/23 05:20 Pulse Rate 135 H 12/11/23 05:20 Respiratory Rate 20 12/11/23 05:20 Blood Pressure 118/79 12/11/23 05:20 Pulse Oximetry 95 12/11/23 05:20 Oxygen Delivery Method Room Air 12/11/23 05:20 Medical Decision Making MDM Narrative Medical decision making narrative: COVID test is ordered and pending. She was given Tylenol and Toradol for her headache and fever and the patient is signed out to Dr. Torres at change of shift. I have no clinical suspicion of meningitis in this patient. Differential Diagnosis Differential Diagnosis: COVID, viral illness Lab Data Lab results reviewed: Yes I reviewed the patient's lab results Labs: Lab Results 12/11/23 Range/Units 05:35 Serum HCG, Qual Negative (NEGATIVE) Discharge Plan Discharge Patient Disposition: Still a Patient
[2023-12-11] MEDS: ACETAMINOPHEN 325 MG TABLET 650 MG PO (05:51)
[2023-12-11] MEDS: 0.9 % SODIUM CHLORIDE 1,000 ML 1000 ML IV ×2 (06:08→07:48)
[2023-12-11 06:34] LABS: HCG Qualitative NEGATIVE (NEGATIVE); Internal Control Within Normal Limits
[2023-12-11] MEDS: KETOROLAC TROMETHAMINE 30 MG/ML VIAL IVP (06:38)
[2023-12-11 06:43] VITALS: BP 113/66; PULSE 116; TEMP 37.9; O2SAT 98
[2023-12-11 07:09] LABS: Anion Gap 16.6; BUN Creatinine Ratio 9.3; Basophils Percent Auto 0.3 % (0.2-2.0); Chloride 103 mmol/L (98-107); Eosinophils Absolute Auto 0.1 10^3/uL (0.0-0.7); Eosinophils Percent Auto 0.8 % (0.9-7.0); Estimated GFR (African America >60 (>=60); Estimated GFR (Non-African Ame >60 (>=60); Glucose 129 mg/dL (74-106); Hematocrit 38.6 % (36.0-48.0); Immature Granulocytes Abs Auto 0.01 10^3/uL (0.00-0.03); Immature Granulocytes Pct Auto 0.2 % (0.0-0.5); Lymphocytes Absolute Auto 0.9 10^3/uL (1.2-3.8); Lymphocytes Percent Auto 13.3 % (20.5-60.0); Mean Corpuscular HGB Conc 33.7 g/dL (29.9-35.2); Mean Corpuscular Hemoglobin 27.4 pg (26.7-34.0); Mean Corpuscular Volume 81.4 fL (81.0-99.0); Mean Platelet Volume 11.1 fL (9.5-13.5); Monocytes Absolute Auto 0.5 10^3/uL (0.3-0.8); Monocytes Percent Auto 7.6 % (1.7-12.0); Neutrophils Absolute Auto 5.1 10^3/uL (1.4-6.5); Neutrophils Percent Auto 77.8 % (43.0-75.0); Platelet Count 267 10^3/uL (150-450); Potassium 3.6 mmol/L (3.5-5.1); Red Blood Count 4.74 10^6/uL (4.20-5.40); Red Cell Distribution Width 12.7 % (11.0-15.0); Sodium 137 mmol/L (136-145); White Blood Count 6.5 10^3/uL (4.0-11.0)
[2023-12-11 07:28] LABS: Internal Control Within Normal Limits; SARS-CoV-2 Ag NEGATIVE (NEGATIVE)
--- NOTE | 2023-12-11 07:35 | ED.GENADUL1 ---
HPI HPI - General Adult General Chief complaint: Headache Stated complaint: HEADACHE Time Seen by Provider: 12/11/23 05:38 Source: patient Mode of arrival: walk-in Limitations: no limitations Related Data Home Medications ?Medication ?Instructions ?Recorded ?Confirmed vit no.95-ferrous 1 tab PO DAILY 11/27/22 12/01/22 fumarate 28 mg-folic acid 800 mcg tablet () sertraline 50 mg tablet 50 mg PO Q24H 12/11/23 12/11/23 Previous Rx's ?Medication ?Instructions ?Recorded ibuprofen 800 mg tablet 800 mg PO Q8H PRN pain 14 days #40 12/04/22 tabs oxycodone-acetaminophen 5 mg-325 1 tab PO Q6H PRN pain 7 days #28 12/04/22 mg tablet (Percocet) tabs Allergies Allergy/AdvReac Type Severity Reaction Status Date / Time No Known Drug Allergies Allergy Verified 12/11/23 05:26 Opioid HPI Opioid Management Most Recent Opioid Data: Last Pain Scale 8 12/11/23 07:51 Last ED Pain Assessment 12/11/23 07:51 Last MAR Pain Assessment 12/11/23 06:38 Ur Phencyclidine Scrn Negative (NEGATIVE) 12/01/22 22:20 PFSH PFSH Medical History (Updated 12/11/23 @ 06:43 by Reza Morales MD) Depression ?F32.A - Depression, unspecified (ICD-10) Anxiety ?F41.9 - Anxiety disorder, unspecified (ICD-10) Social History (Updated 11/27/22 @ 17:47 by Patricia Rivera RN) Within the past year, how often did you have a drink containing alcohol: never Score interpretation: A score less than 3 is consistent with normal alcohol consumption. Smoking status: Never smoker Non-prescribed substance use: denies use Exam Constitutional Vital Signs, click to edit/add: Last Vital Signs Temp 100.2 F 12/11/23 06:43 Pulse 116 H 12/11/23 06:43 Resp 18 12/11/23 06:43 BP 113/66 12/11/23 06:43 Pulse Ox 98 12/11/23 06:43 O2 Del Method Room Air 12/11/23 06:43 Course Vital Signs Vital signs: Vital Signs Temperature 100.7 F H 12/11/23 05:20 Pulse Rate 135 H 12/11/23 05:20 Respiratory Rate 20 12/11/23 05:20 Blood Pressure 118/79 12/11/23 05:20 Pulse Oximetry 95 12/11/23 05:20 Oxygen Delivery Method Room Air 12/11/23 05:20 Temperature 100.2 F 12/11/23 06:43 Pulse Rate 116 H 12/11/23 06:43 Respiratory Rate 18 12/11/23 06:43 Blood Pressure 113/66 12/11/23 06:43 Pulse Oximetry 98 12/11/23 06:43 Oxygen Delivery Method Room Air 12/11/23 06:43 Medical Decision Making Lab Data Labs: Lab Results 12/11/23 12/11/23 Range/Units 05:35 06:45 WBC 6.5 (4.0-11.0) 10^3/uL RBC 4.74 (4.20-5.40) 10^6/uL Hgb 13.0 (12.0-16.0) g/dL Hct 38.6 (36.0-48.0) % MCV 81.4 (81.0-99.0) fL MCH 27.4 (26.7-34.0) pg MCHC 33.7 (29.9-35.2) g/dL RDW 12.7 (11.0-15.0) % Plt Count 267 (150-450) 10^3/uL MPV 11.1 (9.5-13.5) fL Neut % (Auto) 77.8 H (43.0-75.0) % Lymph % (Auto) 13.3 L (20.5-60.0) % [place] % (Auto) 7.6 (1.7-12.0) % Eos % (Auto) 0.8 L (0.9-7.0) % Baso % (Auto) 0.3 (0.2-2.0) % Neut # (Auto) 5.1 (1.4-6.5) 10^3/uL Lymph # (Auto) 0.9 L (1.2-3.8) 10^3/uL [place] # (Auto) 0.5 (0.3-0.8) 10^3/uL Eos # (Auto) 0.1 (0.0-0.7) 10^3/uL Baso # (Auto) 0.0 (0.0-0.1) 10^3/uL Abs Immat Gran (auto) 0.01 (0.00-0.03) 10^3/uL Imm/Tot Granulo (auto) 0.2 (0.0-0.5) % Sodium 137 (136-145) mmol/L Potassium 3.6 (3.5-5.1) mmol/L Chloride 103 (98-107) mmol/L Carbon Dioxide 21.0 (21.0-32.0) mmol/L Anion Gap 16.6 BUN 8.0 (7.0-18.0) mg/dL Creatinine 0.86 (0.55-1.02) mg/dL Est GFR ( Amer) >60 (>=60) Est GFR (Non-Af Amer) >60 (>=60) BUN/Creatinine Ratio 9.3 Glucose 129 H (74-106) mg/dL Calcium 9.0 (8.5-10.1) mg/dL Serum HCG, Qual Negative (NEGATIVE) SARS-CoV-2 Ag (CV2AG) Negative (NEGATIVE) Discharge Plan Discharge Patient Disposition: Still a Patient
[2023-12-11 07:38] VITALS: BP 119/76; PULSE 110; TEMP 37.5; O2SAT 99
--- NOTE | 2023-12-11 07:40 | CT_ITS ---
The [address] [address] Patient Name: BESSIE AN MRN: [id number] date: 1995 Sex: F Assigned Patient Location: ER Current Patient Location: ER Accession/Order Number: [id number] Exam Date: 12/11/2023 07:57 Report Date: 12/11/2023 08:16 At the request of: KYREE ROSEN Procedure: CT head/brain wo con EXAMINATION: CT head/brain wo con, 12/11/2023 7:57 AM EDT HISTORY: Headache COMPARISON: None. TECHNIQUE: CT scan of the head was performed without IV contrast. CT dose reduction technique was used, including Automated Exposure Control. FINDINGS: BRAIN: No edema, hemorrhage, mass, acute infarction, or inappropriate atrophy. CSF SPACES: No hydrocephalus, subarachnoid hemorrhage, or mass. Appropriate for age. SKULL: No fracture, mass, or other significant visible lesion. SINUSES: No significant mucosal thickening or fluid on the limited views. ORBITS: No appreciable abnormality on the limited views. OTHER: Negative CT/CT head/brain wo con IMPRESSION: No acute intracranial abnormality Electronically authenticated by: SYDNEE AMAYA Date: 12/11/2023 08:16
[2023-12-11] MEDS: CEFTRIAXONE 1,000 MG in 0.9 % SODIUM CHLORIDE 50 ML 100 MG IV (08:18)
[2023-12-11 08:32] LABS: Lactate/Lactic Acid 0.7 mmol/L (0.4-2.0)
[2023-12-11 09:00] VITALS: BP 139/91
[2023-12-11] MEDS: LIDOCAINE HCL 1% 100 MG/10 ML MDV INJ (09:00)
[2023-12-11] MEDS: MORPHINE SULFATE 4 MG/ML VIAL IV (09:12)
[2023-12-11 09:30] VITALS: BP 123/80
[2023-12-11 09:56] LABS: Bilirubin Urine NEGATIVE (NEGATIVE); Blood Urine TRACE-L (NEGATIVE); Clarity Urine CLEAR (CLEAR); Color Urine LT. YELLOW (YELLOW); Glucose Urine UA NEGATIVE (NEGATIVE); Ketones Urine NEGATIVE (NEGATIVE); Leukocyte Esterase Urine TRACE (NEGATIVE); Nitrite Urine NEGATIVE (NEGATIVE); Protein Urine NEGATIVE (NEG/TRACE); Urobilinogen Urine 0.2 EU/dL (0.2-1.0)
[2023-12-11 10:48] LABS: Mucus Urine TRACE (NONE SEEN); Squamous Epithelial Cell Urine MODERATE #/LPF (NONE/RARE)
[2023-12-11 10:49] LABS: Bacteria Urine TRACE #/HPF (NONE SEEN); Crystals Seen? None Seen #/HPF (None Seen); RBC Urine 0-2 #/HPF (0-2)
[2023-12-11 10:50] LABS: Cast Seen? NONE SEEN #/LPF (NONE SEEN)
[2023-12-12 18:58] LABS: A. calcoaceticus-baumannii Cpx NOT DETECTED (NOT DETECTE); Bacteroides fragilis NOT DETECTED (NOT DETECTE); Candida albicans NOT DETECTED (NOT DETECTE); Candida auris NOT DETECTED (NOT DETECTE); Candida glabrata NOT DETECTED (NOT DETECTE); Candida krusei NOT DETECTED (NOT DETECTE); Candida parapsilosis NOT DETECTED (NOT DETECTE); Candida tropicalis NOT DETECTED (NOT DETECTE); Cryptococcus neoformans/gattii NOT DETECTED (NOT DETECTE); Enterobacter cloacae complex NOT DETECTED (NOT DETECTE); Enterobacterales NOT DETECTED (NOT DETECTE); Enterococcus faecalis NOT DETECTED (NOT DETECTE); Enterococcus faecium NOT DETECTED (NOT DETECTE); Haemophilus influenzae NOT DETECTED (NOT DETECTE); Klebsiella aerogenes NOT DETECTED (NOT DETECTE); Klebsiella pneumoniae group NOT DETECTED (NOT DETECTE); Listeria monocytogenes NOT DETECTED (NOT DETECTE); Neisseria meningitidis NOT DETECTED (NOT DETECTE); Proteus spp. NOT DETECTED (NOT DETECTE); Pseudomonas aeruginosa NOT DETECTED (NOT DETECTE); Salmonella spp. NOT DETECTED (NOT DETECTE); Serratia marcescens NOT DETECTED (NOT DETECTE); Staphylococcus epidermidis NOT DETECTED (NOT DETECTE); Staphylococcus lugdunensis NOT DETECTED (NOT DETECTE); Staphylococcus spp. NOT DETECTED (NOT DETECTE); Stenotrophomonas maltophilia NOT DETECTED (NOT DETECTE); Streptococcus agalactiae NOT DETECTED (NOT DETECTE); Streptococcus pneumoniae NOT DETECTED (NOT DETECTE); Streptococcus pyogenes NOT DETECTED (NOT DETECTE); Streptococcus spp. NOT DETECTED (NOT DETECTE)
[2023-12-12 20:39] LABS: Source BLOOD
== END 2023-12-11 10:15 | disposition short-term general hospital (02) ==
PROVIDERS: Emergency Medicine; Emergency Provider Emergency Medicine Emergency Medical Services
DX: R51.9 Headache, unspecified (principal); Z20.822 Contact with and (suspected) exposure to COVID-19
CPT/HCPCS: 36415; 62270; 70450; 80048; 81001; 83605; 84703; 85025; 87040; 87150; 87811; 96361; 96365; 96375; 99285; J0696; J1885; J2270